=== PATIENT | female | born 1965 | race Caucasian/White ===

== ENCOUNTER 2016-12-01 00:50 | Emergency (ER) | payer OTHER ==
--- NOTE | 2016-12-01 03:06 | ED CLINICAL REPORT ---
Clinical Report - Physicians/Mid Levels [facility] [address] [place] [address] 12/01/2016 0:51 Patient: MARYCHUY MORENO Time Seen: 01:07; initial patient contact. Arrived- By private vehicle. Historian- patient. HISTORY OF PRESENT ILLNESS Chief Complaint: PELVIC PAIN. This started last night and still present. The symptoms are described as moderate. Modifying factors. Not worsened by anything. Not relieved by anything. The patient has had abdominal pain, pelvic pain and flank pain. No abnormal bleeding, vaginal discharge, pain with urination, urinary frequency or urgency of urination. No hematuria. Denies current . Similar symptoms previously: None. Recent medical care: Not recently seen/assessed. REVIEW OF SYSTEMS The patient has had nausea. No vomiting, diarrhea, fever or chills. All systems otherwise negative, except as recorded above. PAST HISTORY ( Hypothyroidism). Surgeries: No history of previous surgery. Additional Surgeries: no known surgeries. Medications: Synthroid Oral. Allergies: No Known Drug Allergy. SOCIAL HISTORY Smoker - current status unknown. ADDITIONAL NOTES The nursing notes have been reviewed with agreement regarding the chief complaint, PMH and patient medications and allergies. PHYSICAL EXAM Vital Signs: 12/01/2016 01:14 BP: 117/90. HR: 105. RR: 20. O2 saturation: 97%. Temp: 98 F. Have been reviewed. Hypertensive. Tachycardic. Respiratory rate normal. Temperature normal. Oxygen saturation normal. Appearance: Alert. Oriented X3. Appears to be in pain. HEENT: Normal external inspection. ENT: Pharynx normal. CVS: Heart sounds normal. Rate normal. Rhythm normal. Respiratory: No respiratory distress. Breath sounds normal. Abdomen: Soft. Moderate tenderness in the right side of the abdomen and right lower quadrant. No guarding, rebound tenderness or obturator or psoas sign present. Back: Mild CVA tenderness on the right. Skin: Skin warm and dry. Normal skin color. No rash. Extremities: No lower extremity edema. Neuro: Oriented X 3. LABS, X-RAYS, AND EKG Abdominal CT: Fatty liver present. Normal pancreas, gallbladder and kidneys. Adnexa normal. Bladder normal. Appendix normal. No diverticulitis. Small hiatal hernia. Abdominal CT performed without contrast. The study was independently viewed by me, interpreted by the radiologist and discussed with the radiologist. Prior studies were not available for comparison. Interpretation time: 03:10. Laboratory Tests: UA-Culture if indicated: (JAVIER: 12/01/2016 01:10) ( [facility] 12/01/2016 02:03) Final results Test Result Flag Units (Reference) URINE COLOR YELLOW URINE APPEARANCE CLEAR URINE GLUCOSE NEGATIVE (NEGATIVE) URINE BILIRUBIN NEGATIVE (NEGATIVE) URINE KETONE NEGATIVE (NEGATIVE) URINE SPECIFIC GRAVITY >= 1.030 (1.010-1.030) URINE PH 5.5 (5.0-8.0) URINE PROTEIN NEGATIVE (NEGATIVE) URINE UROBILINOGEN 0.2 EU/dL (0.2-1.0) URINE NITRITE NEGATIVE (NEGATIVE) URINE BLOOD 2+ (NEGATIVE) URINE LEUK ESTERASE NEGATIVE (NEGATIVE) URINE RBC 1-3 rbc/hpf (0-1) URINE WBC 1-3 wbc/hpf (0-1) URINE EPITHELIAL CELLS 3-5 EPI/hpf (0-5) URINE BACTERIA FEW (1+) (NONE SEEN) URINE COMMENT CULT NOT INDICATED URINE CULTURES ARE SET-UP BASED ON THE FOLLOWING CRITERIA:POSITIVE NITRITEPOSITIVE LEUKOCYTE ESTERASEGREATER THAN 10 WHITE BLOOD CELLSMODERATE (2+) OR GREATER BACTERIA Urine: (JAVIER: 12/01/2016 01:10) ( [facility] 12/01/2016 01:45) Final results Test Result Flag Units (Reference) URINE NEGATIVE CMP: (JAVIER: 12/01/2016 02:02) ( [facility] 12/01/2016 02:33) Final results Test Result Flag Units (Reference) GLUCOSE 159 H mg/dL (70-110) BUN 14 mg/dL (7-18) CREATININE 0.6 mg/dL (0.6-1.3) Estimated GFR >60 mL/min Estimated GFR- >60 mL/min Note: Persistent reduction over 3 months in eGFR<60 mL/min/1.73 m2 defines CKD. Patients with eGFR values>=60 mL/min/1.73 m2 may also have CKD if evidence ofpersistent proteinuria. Additional information may be foundat www.[email or web address].org. SODIUM 143 mmol/L (136-145) POTASSIUM 4.1 mmol/L (3.5-5.1) CHLORIDE 107 mmol/L (98-107) CARBON DIOXIDE 25 mmol/L (21-32) CALCIUM 8.7 mg/dL (8.5-10.1) TOTAL PROTEIN 7.9 g/dL (6.4-8.2) ALBUMIN 3.8 g/dL (3.3-5.0) BILIRUBIN, TOTAL 0.5 mg/dL (0.0-1.0) ALKALINE PHOSPHATASE 106 U/L (46-116) AST (SGOT) 39 H U/L (15-37) ALT (SGPT) 78 U/L (12-78) . PROGRESS AND PROCEDURES Course of Care: 03:09 12/01/16. CBC assay still down. No SIRS criteria and pt is stable. CBC will be run later and pt will receive a call if abnl to any degree. 12/01/2016 03:01 BP: 120/88. HR: 80. RR: 16. O2 saturation: 98%. Temp: 98 F. Vital Signs: have been reviewed as normal. Toradol 30 mg IVP given. The patient's symptoms are now gone. Physical exam findings are improved. Disposition: Discharged home in good and improved condition. Condition: good. CLINICAL IMPRESSION Acute right lower quadrant abdominal pain of undetermined cause. INSTRUCTIONS Your Current Medications: CONTINUE TAKING THE FOLLOWING MEDICATIONS: Synthroid Oral. Prescription Medications: Hydrocodone/APAP 5mg / 325mg: take 1 orally every 6 hours as needed for pain. Dispense ten (10). No refill. Zofran (orally disintegrating tablets) 4 mg: take 1 orally every 6 hours as needed for nausea and vomiting. Dispense ten (10). No refill. Substitution is permissible. Follow-up: Follow up with your doctor in about two days. Call for an appointment. Screening today revealed the patient's blood pressure to be in the pre-hypertensive range. The patient should follow up with a primary care provider for blood pressure management. (Electronically signed by Bhupinder Gaviria Dr. 12/01/2016 3:18)
--- NOTE | 2016-12-01 03:06 | ED ORDER SUMMARY ---
..... Patient: MARYCHUY MORENO OrderSheet [facility] VisitID: [id number] [address] [place] [address] 51y, F Registration Date/Time: 12/01/2016 ORDER SHEET Weight: 83.0 kg (stated) Allergies: No Known Drug Allergy GENERAL ORDERS: CBC w Diff Urgent (01:12/01/2016 Teddy Madison) (Ack 1:58 Adinekimagayatri) (2:06 Catia R.N.) CMP Urgent (:12/01/2016 Teddy Madison) (Ack 1:58 Azael) (2:06 Catia R.N.) UA-Culture if indicated Urgent (:12/01/2016 Teddy Madison) (1:50 Catia Galindo.N.) Urine Urgent (:12/01/2016 Teddy Madison) (1:50 Catia Galindo.N.) CT Abd/Pel wo Cont Urgent (02:19 12/01/2016 Tdedy Madison) (Ack 2:23 LMuller) (2:32 LMuller) MEDICATION ORDERS: IV FLUIDS: IV NS : initial bolus none -, then 1000 mL/hr for X1 (NOW) (:12/01/2016 Teddy Madison) (2:07 Catia Murrieta.) Toradol IV 30 mg (NOW) (:12/01/2016 Teddy Madison) (2:07 Catia Galindo.N.) Zofran IV 4 mg (NOW) (:12/01/2016 Teddy Madison) (2:07 Catia Galindo.N.) ORDER SHEET NOTES: [Electronically signed by Blane Watson R.N. (03:06 12/01/2016)] [Electronically locked/signed by Blane Watson R.N. (03:12/01/2016)]
--- NOTE | 2016-12-01 03:06 | ED NURSING NOTES ---
Clinical Report - Nurses [facility] [address] [place] [address] 12/01/2016 0:51 Patient: MARYCHUY MORENO TRIAGE Acuity: LEVEL 3. Chief Complaint: PELVIC PAIN and RIGHT-SIDED FLANK PAIN. --01:22 Blane Watson R.N. 01:14 12/01/16. BP: 117/90. HR: 105. RR: 20. O2 saturation: 97%. Temp: 98 F. Pain level now 05/24. --01:22 Blane Watson R.N. Weight: 83 kg stated. Height/Length: 64 inches Per Patient. BMI: 31.4. --01:18 Blane Watson R.N. Medications Synthroid Oral. --01:17 Blane Watson R.N. Allergies No Known Drug Allergy. --01:17 Blane Watson R.N. History Onset. (5 hours ago). ( very low on right abd radiating to back.). She has had abdominal pain and flank pain. Last oral intake by patient was (1500). 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 FALL RISK ASSESSMENT: Fall risk assessment completed. No fall risk identified. NUTRITIONAL RISK ASSESSMENT: The nutritional risk assessment revealed no deficiencies. FUNCTIONAL ASSESSMENT: Functional assessment: no impairments noted. LEARNING NEEDS ASSESSMENT: The learning needs assessment revealed no barriers. SKIN INTEGRITY ASSESSMENT: Skin integrity risk assessment completed. No skin integrity risk identified. --01:22 Blane Watson R.N. PAST MEDICAL HX: ( last pm 1900 11/30 pt states stool was very hard.). --01:24 Blane Watson R.N. PROBLEMS: Hypothyroidism. --01:18 Blane Watson R.N. Interventions ID band on patient. --01:22 Blane Watson R.N. PHYSICAL ASSESSMENT GENERAL / NEURO / PSYCH: Alert. Oriented X 4. Appears in distress. HEENT: Mucous membranes are pink. RESPIRATORY: Respirations not labored. Breath sounds within normal limits. CVS: Capillary refill less than 2 seconds. SKIN: Skin is warm and dry. --01:22 Blane Watson R.N. Ambulatory to room. --: Blane Watson R.N. NURSING PROGRESS NOTES Patient gowned. Patient identifiers checked. Call light placed in reach. Bed placed in lowest position. Brakes of bed on. --01:24 Blaen Watson R.N. 02:12/01/2016 Site #1 started via IV in the right antecubital space with an 20g angiocath, with aseptic technique and good blood return; one attempt. Blood drawn: rainbow set. Labeled in the presence of the patient and sent to the lab. Saline lock flushed with saline. --02: Blane Watson R.N. 02:12/01/2016 Zofran (Ondansetron HCl) IVP 4 mg given. via site #1. Allergies verified and confirmed 5 rights. IV patency established. IV site checked: no pain, redness, or swelling. IV flushed thoroughly pre- and post-medication administration. --02: Blane Watson R.N. 02:12/01/2016 Toradol IVP 30 mg given. via site #1. Allergies verified and confirmed 5 rights. IV patency established. IV site checked: no pain, redness, or swelling. IV flushed thoroughly pre- and post-medication administration. --02: Blane Watson R.N. 02:12/01/2016 Started bag #1 1000 mL IV Fluids IV NS (Saline); bolus of 1000 mL wide open via site #1. Allergies verified and confirmed 5 rights. IV patency established. IV site checked: no pain, redness, or swelling. IV flushed thoroughly pre- and post-medication administration. --02:07 Blane Watson R.N. DISPOSITION / DISCHARGE Departure time: 0240. Condition at departure: improved and stable. No learning barriers present. Discharge instructions provided and reviewed with the patient. Reviewed warnings. Reviewed medication(s). Treatments reviewed. Patient verbalized understanding. Written instructions provided in [place]. The patient was discharged by the physician. She was discharged home and accompanied by choir member. She left the Emergency Department ambulatory and via private vehicle. Financial Associate driving. --03:05 Blane Watson R.N. 03:01 12/01/16. BP: 120/88. HR: 80. RR: 16. O2 saturation: 98%. Temp: 98 F. --03:05 Blane Watson R.N. Locked/Released at 12/01/2016 3:06 by Blane Watson R.N.
--- NOTE | 2016-12-01 03:06 | ED NURSING NOTES ---
Clinical Report - Nurses [facility] [address] [place] [address] 12/01/2016 0:51 Patient: MARYCHUY MORENO TRIAGE Acuity: LEVEL 3. Chief Complaint: PELVIC PAIN and RIGHT-SIDED FLANK PAIN. --01:22 Blane Watson R.N. 01:14 12/01/16. BP: 117/90. HR: 105. RR: 20. O2 saturation: 97%. Temp: 98 F. Pain level now 05/24. --01:22 Blane Watson R.N. Weight: 83 kg stated. Height/Length: 64 inches Per Patient. BMI: 31.4. --01:18 Blane Watson R.N. Medications Synthroid Oral. --01:17 Blane Watson R.N. Allergies No Known Drug Allergy. --01:17 Blane Watson R.N. History Onset. (5 hours ago). ( very low on right abd radiating to back.). She has had abdominal pain and flank pain. Last oral intake by patient was (1500). 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 FALL RISK ASSESSMENT: Fall risk assessment completed. No fall risk identified. NUTRITIONAL RISK ASSESSMENT: The nutritional risk assessment revealed no deficiencies. FUNCTIONAL ASSESSMENT: Functional assessment: no impairments noted. LEARNING NEEDS ASSESSMENT: The learning needs assessment revealed no barriers. SKIN INTEGRITY ASSESSMENT: Skin integrity risk assessment completed. No skin integrity risk identified. --01:22 Blane Watson R.N. PAST MEDICAL HX: ( last pm 1900 11/30 pt states stool was very hard.). --01:24 Blane Watson R.N. PROBLEMS: Hypothyroidism. --01:18 Blane Watson R.N. Interventions ID band on patient. --01:22 Blane Watson R.N. PHYSICAL ASSESSMENT GENERAL / NEURO / PSYCH: Alert. Oriented X 4. Appears in distress. HEENT: Mucous membranes are pink. RESPIRATORY: Respirations not labored. Breath sounds within normal limits. CVS: Capillary refill less than 2 seconds. SKIN: Skin is warm and dry. --01:22 Blane Watson R.N. Ambulatory to room. --: Blane Watson R.N. NURSING PROGRESS NOTES Patient gowned. Patient identifiers checked. Call light placed in reach. Bed placed in lowest position. Brakes of bed on. --01:24 Blane Watson R.N. 02:12/01/2016 Site #1 started via IV in the right antecubital space with an 20g angiocath, with aseptic technique and good blood return; one attempt. Blood drawn: rainbow set. Labeled in the presence of the patient and sent to the lab. Saline lock flushed with saline. --02: Blane Watson R.N. 02:12/01/2016 Zofran (Ondansetron HCl) IVP 4 mg given. via site #1. Allergies verified and confirmed 5 rights. IV patency established. IV site checked: no pain, redness, or swelling. IV flushed thoroughly pre- and post-medication administration. --02: Blane Watson R.N. 02:12/01/2016 Toradol IVP 30 mg given. via site #1. Allergies verified and confirmed 5 rights. IV patency established. IV site checked: no pain, redness, or swelling. IV flushed thoroughly pre- and post-medication administration. --02: Blane Watson R.N. 02:12/01/2016 Started bag #1 1000 mL IV Fluids IV NS (Saline); bolus of 1000 mL wide open via site #1. Allergies verified and confirmed 5 rights. IV patency established. IV site checked: no pain, redness, or swelling. IV flushed thoroughly pre- and post-medication administration. --02:07 Blane Watson R.N. DISPOSITION / DISCHARGE Departure time: 0240. Condition at departure: improved and stable. No learning barriers present. Discharge instructions provided and reviewed with the patient. Reviewed warnings. Reviewed medication(s). Treatments reviewed. Patient verbalized understanding. Written instructions provided in [place]ian. The patient was discharged by the physician. She was discharged home and accompanied by coordinator cardiopulmonary services. She left the Emergency Department ambulatory and via private vehicle. Clinical Data Abstractor driving. --03:05 Blane Watson R.N. 03:01 12/01/16. BP: 120/88. HR: 80. RR: 16. O2 saturation: 98%. Temp: 98 F. --03:05 Blane Watson R.N. Locked/Released at 12/01/2016 3:06 by Blane Watson R.N.
--- NOTE | 2016-12-01 03:06 | ED ORDER SUMMARY ---
..... Patient: MARYCHUY MORENO OrderSheet [facility] VisitID: [id number] [address] [place] [address] 51y, F Registration Date/Time: 12/01/2016 ORDER SHEET Weight: 83.0 kg (stated) Allergies: No Known Drug Allergy GENERAL ORDERS: CBC w Diff Urgent (01:12/01/2016 Teddy Madison) (Ack 1:58 Adinekimagayatri) (2:06 Catia R.N.) CMP Urgent (:12/01/2016 Teddy Madison) (Ack 1:58 Azael) (2:06 Catia R.N.) UA-Culture if indicated Urgent (:12/01/2016 Teddy Madison) (1:50 Catia Galindo.N.) Urine Urgent (:12/01/2016 Teddy Madison) (1:50 Catia Galindo.N.) CT Abd/Pel wo Cont Urgent (02:19 12/01/2016 Teddy Madison) (Ack 2:23 LMuller) (2:32 LMuller) MEDICATION ORDERS: IV FLUIDS: IV NS : initial bolus none -, then 1000 mL/hr for X1 (NOW) (:12/01/2016 Teddy Madison) (2:07 Catia Murrieta.) Toradol IV 30 mg (NOW) (:12/01/2016 Teddy Madison) (2:07 Catia Galindo.N.) Zofran IV 4 mg (NOW) (:12/01/2016 Teddy Madison) (2:07 Catia Galindo.N.) ORDER SHEET NOTES: [Electronically signed by Blane Watson R.N. (03:06 12/01/2016)] [Electronically locked/signed by Blane Watson R.N. (03:12/01/2016)]
--- NOTE | 2016-12-01 03:57 | DIAGNOSTIC IMAGING REPORT ---
PROCEDURE: CT ABDOMEN/PELVIS W/O CONTRAST INDICATION: FLANK PAIN TECHNIQUE: Noncontrast axial images with sagittal and coronal reformations. COMPARISON: None. FINDINGS: ABDOMEN: Mild linear scarring at the lung bases. Kidneys and ureters are normal. No evidence of urinary tract calculus or obstruction. Small hiatal hernia. Bowel pattern is otherwise normal, including appendix. Moderate generalized fatty infiltration of the liver. Gallbladder, spleen, pancreas, and aorta are normal. Mild to moderate degenerative changes of the lower lumbar facet joints. PELVIS: Uterus and adnexal structures are normal. No evidence of free fluid. IMPRESSION: 1. Moderate generalized fatty infiltration of the liver. 2. Small hiatal hernia. 3. Otherwise negative CT abdomen and pelvis. 4. Preliminary report provided to Dr. Bhupinder Gaviria. All CT scans at this facility use dose modulation, iterative reconstruction, and/or weight-based dosing when appropriate to reduce radiation dose to as low as reasonably achievable.
--- NOTE | 2016-12-01 04:02 | ED MED RECONCILIATION SUMMARY ---
Patient: MARYCHUY MORENO Medication Reconciliation Report [facility] VisitID: [id number] [address] [place] [address] 51y, F Registration Date/Time: 12/01/2016 Weight: 83.0 kg Height/Length: 64 in. BMI: 31.4 ALLERGIES: No Known Drug Allergy The patient's Home Medications are listed below: CONTINUE TAKING THE FOLLOWING MEDICATIONS: Synthroid Oral The source(s) of the original Home Medication information: Not obtained. The following Medications were given to the patient in the Emergency Department: Zofran [IVP] IVP 4 mg, administered: 12/01/2016 2:07:00 AM Toradol [IVP] IVP 30 mg, administered: 12/01/2016 2:07:00 AM IV NS IV Fluids bolus 1000 mL wide open, administered: 12/01/2016 2:07:00 AM The following Medications were prescribed to the patient: Hydrocodone/APAP 5mg / 325mg: take 1 orally every 6 hours as needed for pain. Dispense ten (10). No refill. -- Bhupinder Gaviria Dr. Zofran (orally disintegrating tablets) 4 mg: take 1 orally every 6 hours as needed for nausea and vomiting. Dispense ten (10). No refill. Substitution is permissible. -- Bhupinder Gaviria Dr.
--- NOTE | 2016-12-01 04:02 | ED MAR SUMMARY ---
..... Medication Administration Record [facility] [address] [place] [address] Patient: MARYCHUY MORENO Visit ID: [id number] 51y, F Weight: 83.0 kg Height/Length: 64 in BMI: 31.4 ALLERGIES: No Known Drug Allergy Start 02:07 12/01/2016 Blane Watson R.N. Medication Administered: IV NS (SALINE), Dose: IV Fluids, Bolus: 1000 mL wide open, Dispensed: 1000 mL bag, Site: #1 right AC. Medication Ordered: IV NS : initial bolus none -, then 1000 mL/hr for X1 (NOW). Given 02:12/01/2016 Blane Watson R.N. Medication Administered: TORADOL [IVP], Dose: 30 mg IVP, Site: #1 right AC. Medication Ordered: Toradol IV 30 mg (NOW). Given 02:12/01/2016 Blane Watson R.N. Medication Administered: ZOFRAN [IVP] (ONDANSETRON HCL), Dose: 4 mg IVP, Site: #1 right AC. Medication Ordered: Zofran IV 4 mg (NOW).
--- NOTE | 2016-12-01 04:02 | ED MED RECONCILIATION SUMMARY ---
Patient: MARYCHUY MORENO Medication Reconciliation Report [facility] VisitID: [id number] [address] [place] [address] 51y, F Registration Date/Time: 12/01/2016 Weight: 83.0 kg Height/Length: 64 in. BMI: 31.4 ALLERGIES: No Known Drug Allergy The patient's Home Medications are listed below: CONTINUE TAKING THE FOLLOWING MEDICATIONS: Synthroid Oral The source(s) of the original Home Medication information: Not obtained. The following Medications were given to the patient in the Emergency Department: Zofran [IVP] IVP 4 mg, administered: 12/01/2016 2:07:00 AM Toradol [IVP] IVP 30 mg, administered: 12/01/2016 2:07:00 AM IV NS IV Fluids bolus 1000 mL wide open, administered: 12/01/2016 2:07:00 AM The following Medications were prescribed to the patient: Hydrocodone/APAP 5mg / 325mg: take 1 orally every 6 hours as needed for pain. Dispense ten (10). No refill. -- Bhupinder Gaviria Dr. Zofran (orally disintegrating tablets) 4 mg: take 1 orally every 6 hours as needed for nausea and vomiting. Dispense ten (10). No refill. Substitution is permissible. -- Bhupinder Gaviria Dr.
--- NOTE | 2016-12-01 04:02 | ED DISCHARGE INSTRUCTIONS ---
Patient: MARYCHUY MORENO General Instructions [facility] VisitID: [id number] [address] [place] [address] 51y, F Registration Date/Time: 12/01/2016 Acute right lower quadrant abdominal pain of undetermined cause. INSTRUCTIONS Your Current Medications: CONTINUE TAKING THE FOLLOWING MEDICATIONS: Synthroid Oral. Prescription Medications: Hydrocodone/APAP 5mg / 325mg: take 1 orally every 6 hours as needed for pain. Dispense ten (10). No refill. Zofran (orally disintegrating tablets) 4 mg: take 1 orally every 6 hours as needed for nausea and vomiting. Dispense ten (10). No refill. Substitution is permissible. Follow-up: Follow up with your doctor in about two days. Call for an appointment. Screening today revealed the patient's blood pressure to be in the pre-hypertensive range. The patient should follow up with a primary care provider for blood pressure management. ADDITIONAL INFORMATION Abdominal Pain, Unknown Cause (Female) The exact cause of your abdominal (stomach) pain is not certain. This does not mean that this is something to worry about, or the right tests were not done. Everyone likes to know the exact cause of the problem, but sometimes with abdominal pain, there is no clear-cut cause, and this could be a good thing. The good news is that your symptoms can be treated, and you will feel better. Your condition does not seem serious now; however, sometimes the signs of a serious problem may take more time to appear. For this reason,it is important for you to watch for any new symptoms, problems,or worsening of your condition. Over the next few days, the abdominal pain may come and go, or be continuous. Other common symptoms can include nausea and vomiting. Sometimes it can be difficult to tell if you feel nauseous, you may just feel bad and not associate that feeling with nausea. Constipation, diarrhea, and a fever may go along with the pain. The pain may continue even if treated correctly over the following days. Depending on how things go, sometimes the cause can become clear and may require further or different treatment. Additional evaluations, medications, or tests may be needed. Home care Your health care provider may prescribe medications for pain, symptoms, or an infection. Follow the health care provider's instructions for taking these medications. General care Rest until your next exam. No strenuous activities. Try to find positions that ease discomfort. A small pillow placed on the abdomen may help relieve pain. Something warm on your abdomen (such as a heating pad) may help, but be careful not to burn yourself. Diet Do not force yourself to eat, especially if having cramps, vomiting, or diarrhea. Water is important so you do not get dehydrated. Soup may also be good. Sports drinks may also help, especially if they are not too acidic. Make sure you don't drink sugary drinks as this can make things worse. Take liquids in small amounts. Do not guzzle them. Caffeine sometimes makes the pain and cramping worse. Avoid dairy products if you have vomiting or diarrhea. Don't eat large amounts at a time. Wait a few minutes between bites. Eat a diet low in fiber (called a low-residue diet). Foods allowed include refined breads, white rice, fruit and vegetable juices without pulp, tender meats. These foods will pass more easily through the intestine. Avoid whole-grain foods, whole fruits and vegetables, meats, seeds and nuts, fried or fatty foods, dairy, alcohol and spicy foods until your symptoms go away. Follow-up care Follow up with your health care provider as instructed, or if your pain does not begin to improve in the next 24 hours. When to seek medical care Seek prompt medical care if any of the following occur: Pain gets worse or moves to the right lower abdomen New or worsening vomiting or diarrhea Swelling of the abdomen Unable to pass stool for more than three days Fever of 100.4F (38C) or higher, or as directed by your healthcare provider. Blood in vomit or bowel movements (dark red or black color) Jaundice (yellow color of eyes and skin) Weakness, dizziness Chest, arm, back, neck or jaw pain Unexpected vaginal bleeding or missed period Call 911 Call emergency services if any of the following occur: Trouble breathing Confusion Fainting or loss of consciousness Rapid heart rate Seizure Hydrocodone Bitartrate, Acetaminophen Oral tablet What is this medicine? ACETAMINOPHEN; HYDROCODONE (a set a UMA chuy fen; anson droe KOE done) is a pain reliever. It is used to treat mild to moderate pain. How should I use this medicine? Take this medicine by mouth. Swallow it with a full glass of water. Follow the directions on the prescription label. If the medicine upsets your stomach, take the medicine with food or milk. Do not take more than you are told to take. Talk to your wax ball molder regarding the use of this medicine in children. This medicine is not approved for use in children. What side effects may I notice from receiving this medicine? Side effects that you should report to your doctor or health pulmonary care nurse as soon as possible: allergic reactions like skin rash, itching or hives, swelling of the face, lips, or tongue breathing problems confusion feeling faint or lightheaded, falls stomach pain yellowing of the eyes or skin Side effects that usually do not require medical attention (report to your doctor or health pulmonary care nurse if they continue or are bothersome): nausea, vomiting stomach upset What may interact with this medicine? alcohol antihistamines isoniazid medicines for depression, anxiety, or psychotic disturbances medicines for sleep muscle relaxants naltrexone narcotic medicines (opiates) for pain phenobarbital ritonavir tramadol What if I miss a dose? If you miss a dose, take it as soon as you can. If it is almost time for your next dose, take only that dose. Do not take double or extra doses. Where should I keep my medicine? Keep out of the reach of children. This medicine can be abused. Keep your medicine in a safe place to protect it from theft. Do not share this medicine with anyone. Selling or giving away this medicine is dangerous and against the law. Store at room temperature between 15 and 30 degrees C (59 and 86 degrees F). Protect from light. Keep container tightly closed. Throw away any unused medicine after the expiration date. Discard unused medicine and used packaging carefully. Pets and children can be harmed if they find used or lost packages. What should I tell my health care provider before I take this medicine? They need to know if you have any of these conditions: brain tumor Crohn's disease, inflammatory bowel disease, or ulcerative colitis drink more than 3 alcohol-containing drinks per day drug abuse or addiction head injury heart or circulation problems kidney disease or problems going to the bathroom liver disease lung disease, asthma, or breathing problems an unusual or allergic reaction to acetaminophen, hydrocodone, other opioid analgesics, other medicines, foods, dyes, or preservatives or trying to get breast-feeding What should I watch for while using this medicine? Tell your doctor or health pulmonary care nurse if your pain does not go away, if it gets worse, or if you have new or a different type of pain. You may develop tolerance to the medicine. Tolerance means that you will need a higher dose of the medicine for pain relief. Tolerance is normal and is expected if you take the medicine for a long time. Do not suddenly stop taking your medicine because you may develop a severe reaction. Your body becomes used to the medicine. This does NOT mean you are addicted. Addiction is a behavior related to getting and using a drug for a non-medical reason. If you have pain, you have a medical reason to take pain medicine. Your doctor will tell you how much medicine to take. If your doctor wants you to stop the medicine, the dose will be slowly lowered over time to avoid any side effects. You may get drowsy or dizzy when you first start taking the medicine or change doses. Do not drive, use machinery, or do anything that may be dangerous until you know how the medicine affects you. Stand or sit up slowly. There are different types of narcotic medicines (opiates) for pain. If you take more than one type at the same time, you may have more side effects. Give your health care provider a list of all medicines you use. Your doctor will tell you how much medicine to take. Do not take more medicine than directed. Call emergency for help if you have problems breathing. The medicine will cause constipation. Try to have a bowel movement at least every 2 to 3 days. If you do not have a bowel movement for 3 days, call your doctor or health pulmonary care nurse. Too much acetaminophen can be very dangerous. Do not take Tylenol (acetaminophen) or medicines that contain acetaminophen with this medicine. Many non-prescription medicines contain acetaminophen. Always read the labels carefully. Ondansetron Oral disintegrating tablet What is this medicine? ONDANSETRON (on EVERARDO se emely) is used to treat nausea and vomiting caused by chemotherapy. It is also used to prevent or treat nausea and vomiting after surgery. How should I use this medicine? These tablets are made to dissolve in the mouth. Do not try to push the tablet through the foil backing. With dry hands, peel away the foil backing and gently remove the tablet. Place the tablet in the mouth and allow it to dissolve, then swallow. While you may take these tablets with water, it is not necessary to do so. Talk to your wax ball molder regarding the use of this medicine in children. Special care may be needed. What side effects may I notice from receiving this medicine? Side effects that you should report to your doctor or health pulmonary care nurse as soon as possible: allergic reactions like skin rash, itching or hives, swelling of the face, lips, or tongue breathing problems dizziness fast or irregular heartbeat feeling faint or lightheaded, falls fever and chills swelling of the hands and feet tightness in the chest Side effects that usually do not require medical attention (report to your doctor or health pulmonary care nurse if they continue or are bothersome): constipation or diarrhea headache What may interact with this medicine? Do not take this medicine with any of the following medications: -apomorphine -cisapride -dofetilide -dronedarone -pimozide -thioridazine -ziprasidone This medicine may also interact with the following medications: -carbamazepine -phenytoin -rifampicin -tramadol -other medicines that prolong the QT interval (cause an abnormal heart rhythm) What if I miss a dose? If you miss a dose, take it as soon as you can. If it is almost time for your next dose, take only that dose. Do not take double or extra doses. Where should I keep my medicine? Keep out of the reach of children. Store between 2 and 30 degrees C (36 and 86 degrees F). Throw away any unused medicine after the expiration date. What should I tell my health care provider before I take this medicine? They need to know if you have any of these conditions: heart disease history of irregular heartbeat liver disease low levels of magnesium or potassium in the blood an unusual or allergic reaction to ondansetron, granisetron, other medicines, foods, dyes, or preservatives or trying to get breast-feeding What should I watch for while using this medicine? Check with your doctor or health pulmonary care nurse as soon as you can if you have any sign of an allergic reaction. You have been given the following additional information: Abdominal Pain, Unknown Cause, (Female) Hydrocodone Bitartrate, Acetaminophen Oral tablet Ondansetron Oral disintegrating tablet (Electronically signed by Bhupinder Gaviria Dr. 12/01/2016 3:18)
--- NOTE | 2016-12-01 04:02 | ED MAR SUMMARY ---
..... Medication Administration Record [facility] [address] [place] [address] Patient: MARYCHUY MORENO Visit ID: [id number] 51y, F Weight: 83.0 kg Height/Length: 64 in BMI: 31.4 ALLERGIES: No Known Drug Allergy Start 02:07 12/01/2016 Blane Watson R.N. Medication Administered: IV NS (SALINE), Dose: IV Fluids, Bolus: 1000 mL wide open, Dispensed: 1000 mL bag, Site: #1 right AC. Medication Ordered: IV NS : initial bolus none -, then 1000 mL/hr for X1 (NOW). Given 02:12/01/2016 Blane Watson R.N. Medication Administered: TORADOL [IVP], Dose: 30 mg IVP, Site: #1 right AC. Medication Ordered: Toradol IV 30 mg (NOW). Given 02:12/01/2016 Blane Watson R.N. Medication Administered: ZOFRAN [IVP] (ONDANSETRON HCL), Dose: 4 mg IVP, Site: #1 right AC. Medication Ordered: Zofran IV 4 mg (NOW).
== END 2016-12-01 04:00 | disposition home or self-care (01) ==
LOC: ED SRH 00:50
DX: R10.31 Right lower quadrant pain (principal); E03.9 Hypothyroidism, unspecified
CPT/HCPCS: 90004; 90100; 93070; 95059